=== PATIENT | female | born 1990 | race African-American/Black ===

== ENCOUNTER 2017-04-14 08:36 | Inpatient (IN) | payer OTHER ==
[2017-04-14 09:43] VITALS: BMI 35.0
--- NOTE | 2017-04-14 11:54 | HP ---
Admission [facility] Chief Complaint: REHAB TX FOR ALCOHOL DEPENDENCE Allergies/Adverse Reactions: Allergies Allergy/AdvReac Type Severity Reaction Status Date / Time iron Allergy Verified 04/14/17 10:40 History of Present Illness: 27 Y/O AA/FEMALE WITH A HX ALCOHOL DEPENDENCE SEEKING REHAB TX. PT STATES A PREVIOUS PROBATION MANDATED OPD TX AND WAS IN DETOX AT [facility] LAST WEEK FROM 04/09/17 TO 04/11/17 AND SIGNED OUT AMA. PT IS ALERT O X 3. NAD. Exam Limitations: No Limitations - Ebola screening Have you traveled outside of the country in the last 21 days: No Have you had contact with anyone from an Ebola affected area: No Have you been sick,other than usual withdrawal symptoms: No Do you have a fever: No - Review of Systems Constitutional: Diaphoresis, Night Sweats, Changes in sleep (ON LITH) EENT: reports: Blurred Vision (HX ASTIGMATISM AND WEARS GLASSES), Dental Problems (HX CAVITIES/FILLINGS) Respiratory: reports: No Symptoms reported Cardiac: reports: Chest Pain (ONCE IN A BLUE BALTAZAR. "I WAS CHECKED OUT IN THE PAST AND THEY SAID EKG WAS FINE"), Chest Tightness ("I GET THAT WHEN I CATCH ANXIETY ATTACK") GI: reports: Constipated, Indigestion, Abdominal cramping : reports: Discharge (BROWN DISCHARGE SOMETIMES. DENIES BURNING OR SYMPTOMS AT THIS TIME.) Musculoskeletal: reports: Joint Pain (HX RIGHT DISLOCATED KNEE/TORN LIGAMENT LEFT ANKLE.) Integumentary: reports: Rash (ON RIGHT SOLE AND BIG TOE AREAS) Neuro: reports: Headache, Other (DRY MOUTH FROM DRINKING) Endocrine: reports: No Symptoms Reported Hematology: reports: No Symptoms Reported Psychiatric: reports: Orientated x3, Anxious, Depressed Other Systems: Reviewed and Negative Patient History - Patient Medical History Hx Anemia: No Hx Asthma: No Hx Chronic Obstructive Pulmonary Disease (COPD): No Hx Cardiac Disorders: No Hx Hypertension: No Hx Hypercholesterolemia: No HX Cerebrovascular Accident: No Hx Seizures: No Hx Diabetes: No Hx Gastrointestinal Disorders: No Hx Genitourinary Disorders: Yes (UTI IN THE PAST) Hx Sexually Transmitted Disorders: Yes (Chlamydia 3 years ago) Hx Renal Disease (ESRD): No Hx Thyroid Disease: No Hx Human Immunodeficiency Virus (HIV): No (NEGATIVE HX) Hx Hepatitis C: No Hx Depression: Yes (AND ANXIETY) Hx Suicide Attempt: No Hx Schizophrenia: No - Patient Surgical History Past Surgical History: No Hx Neurologic Surgery: No Hx Cataract Extraction: No Hx Cardiac Surgery: No Hx Lung Surgery: No Hx Breast Surgery: No Hx Breast Biopsy: No Hx Abdominal Surgery: No Hx Appendectomy: No Hx Cholecystectomy: No Hx Genitourinary Surgery: No Hx Orthopedic Surgery: No Anesthesia Reaction: No - PPD History Previous Implant?: Yes (2015) Documented Results: Negative w/o proof Implanted On Prior R Admission?: Yes PPD to be Administered?: Yes - Reproductive History Patient is a Female of Child Bearing Age (11 -55 yrs old): Yes Last Menstrual Period: 03/08/17 Patient : No - Smoking Cessation Smoking history: Current every day smoker Have you smoked in the past 12 months: Yes Aproximately how many cigarettes per day: 8 Hx Chewing Tobacco Use: No Initiated information on smoking cessation: Yes 'Breaking Loose' booklet given: 04/14/17 - Substance & Tx. History Hx Alcohol Use: Yes (VODKA/GIN/TEQUILLA) Hx Substance Use: Yes (MARIJUANA(TOX NEGATIVE)) Substance Use Type: Alcohol, Marijuana (TOX NEGATIVE) Hx Substance Use Treatment: Yes (LAST TX AT [facility]OS[facility] DETOX 04/09 - . SIGNED OUT AMA.) - Substances Abused Alcohol Route: Oral Frequency: Daily Amount used: Mixed Rum, tequila,vodka, Gin - 1 liter, Beer 2 bottles daily Age of first use: 17 Date of Last Use: 04/13/17 Family Disease History - Family Disease History Family Disease History: Other: Father (ANEURYSM-), Mother (BIPOLAR DEPRESSION), Sister (MANIC DEPRESSION) Other Family History: FAMILY HX ALCOHOLISM. Admission Physical Exam [facility] - Vital Signs Vital Signs: Vital Signs - 24 hr 04/14/17 09:36 Temperature 97.2 F L Pulse Rate 92 H Respiratory 18 Rate Blood Pressure 123/71 - Physical General Appearance: Yes: Obese, Irritable, Anxious HEENTM: Yes: EOMI, Normocephalic, DESIRE, Pharynx Normal Respiratory: Yes: Chest Non-Tender, Lungs Clear, Normal Breath Sounds, No Respiratory Distress Neck: Yes: Supple, Trachea in good position Breast: Yes: Breast Exam Deferred Cardiology: Yes: Regular Rhythm, Regular Rate, S1, S2 Abdominal: Yes: Normal Bowel Sounds, Non Tender, Soft, Protuberent Genitourinary: Yes: Other (N/C) Back: Yes: Within Normal Limits Musculoskeletal: Yes: full range of Motion, Gait Steady Extremities: Yes: Non-Tender Neurological: Yes: chief of police II-XII NML intact, Fully Oriented, Alert Integumentary: Yes: Dry, Warm Lymphatic: Yes: Within Normal Limits - Diagnostic (1) Alcohol dependence with uncomplicated withdrawal Current Visit: Yes Status: Chronic (2) Rash Current Visit: Yes Status: Chronic Comment: SOLE OF RIGHT FOOT AND BIG TOE. ECZEMA Cleared for Admission [facility] - Detox or Rehab Claeared for Rehab Admission: Yes [facility] Breath Alcohol Content Breath Alcohol Content: 0 Urine Pregancy Test - Result Urine Test Results: Negative- NO Line Present Urine Drug Screen - Results Drug Screen Negative: No Urine Drug Screen Results: BZO-Benzodiazepines Inpatient Rehab Admission - Initial Determination Are CD services needed?: Yes Free of communicable disease: Yes Not in need of hospitalization: Yes - Rehab Admission Criteria Previous failed treatment: Yes Poor recovery environment: Yes Comorbidities: No Lacks judgement: Yes Patient is meeting Inpatient Rehab admission criteria:: Yes (EXCESSIVE DRINKING AFFECTING HER SOCIAL/PRODUCTIVE LIFE)
[2017-04-14] MEDS ORDERED: P-EPHED 60MG/TRIPROLIDI 2.5MG TABLET PO PRN (12:30)
[2017-04-14] MEDS ORDERED: MAG HYDROX/AL HYDROX/SIMETH 30 ML UNIT-DOSE CUP PO PRN (12:30)
[2017-04-14] MEDS ORDERED: NICOTINE POLACRILEX 2 MG GUM BC PRN (12:30)
[2017-04-14] MEDS ORDERED: ACETAMINOPHEN 325 MG TABLET (FP) PO PRN (12:30)
[2017-04-14] MEDS ORDERED: guaiFENesin/D-METHORPHAN HB 10 ML UNIT-DOSE CUPS PO PRN (12:30)
[2017-04-14] MEDS ORDERED: MAGNESIUM HYDROX 2400MG/30ML ORAL SUSPENSION 30 ML CUP PO PRN (12:30)
[2017-04-14] MEDS ORDERED: MAGNESIUM CITRATE 300 ML BOTTLE PO PRN (12:30)
[2017-04-14] MEDS ORDERED: LOPERAMIDE HCL 2 MG CAPSULE PO PRN (12:30)
[2017-04-14] MEDS ORDERED: MENTHOL/PHENOL 1 EACH UD MM PRN (12:30)
[2017-04-14 15:23] LABS: MCH 27.7 pg (25.7-33.7); MCHC 33.9 g/dl (32.0-36.0); MEAN CELL VOLUME 81.8 fl (80-96); MEAN PLT VOLUME 7.8 fl (7.5-11.1); PLATELET COUNT 348 K/MM3 (134-434); RDW 14.5 % (11.6-15.6); WHITE BLOOD COUNT 11.8 K/mm3 (4.0-10.0)
[2017-04-14] MEDS ORDERED: TUBERCULIN PPD 5 TU/0.1ML VIAL ID ONE (15:35)
[2017-04-14 15:54] LABS: ALBUMIN 3.4 g/dl (3.4-5.0); ALK PHOS 102 U/L (45-117); ANION GAP 8 (8-16); BILIRUBIN,TOTAL 0.5 mg/dL (0.2-1.0); CALCIUM 8.5 mg/dL (8.5-10.1); CO2 25 mmol/L (21-32); CREATININE 0.8 mg/dL (0.55-1.02); GLUCOSE,RANDOM 97 mg/dL (74-106); SGOT/AST 28 U/L (15-37); SGPT/ALT 30 U/L (12-78)
[2017-04-14] MEDS: ASCORBIC ACID 500 MG TABLET (FP) PO SCH (16:00)
[2017-04-14] MEDS: TRIAMCINOLONE ACET 0.025% OINTMENT 15 GM TUBE TP SCH ×2 (16:01→21:31)
[2017-04-14] MEDS: PYRIDOXINE HCL (B-6) 50 MG TABLET (FP) PO SCH (16:02)
[2017-04-14] MEDS: MULTIVITAMINS (DAILY MVI) TABLET (FP) PO SCH (16:02)
[2017-04-14] MEDS: NICOTINE 14 MG/24 HOURS TOPICAL PATCH TD SCH (16:02)
[2017-04-14 16:07] LABS: SICKLE CELL SCREEN POSITIVE (NEGATIVE)
[2017-04-14 19:47] LABS: URINE APPEARANCE SLCLOUDY; URINE BILIRUBIN NEGATIVE (NEGATIVE); URINE BLOOD NEGATIVE (NEGATIVE); URINE COLOR YELLOW; URINE GLUCOSE (UA) NEGATIVE (NEGATIVE); URINE KETONE NEGATIVE (NEGATIVE); URINE NITRITE POSITIVE (NEGATIVE); URINE PROTEIN NEGATIVE (NEGATIVE); URINE UROBILINOGEN NEGATIVE mg/dL (0.2-1.0)
[2017-04-14 19:50] LABS: URINE LEUK ESTERASE 1+ (NEGATIVE)
[2017-04-14 19:58] LABS: URINE BACTERIA MANY /hpf (NONE SEEN); URINE WBC 20 /hpf (3-5)
[2017-04-14] MEDS: TOLNAFTATE 1% CREAM 15 GM TUBE TP SCH (21:31)
[2017-04-14] MEDS: THIAMINE HCL 100 MG TABLET (FP) PO SCH (21:31)
[2017-04-14] MEDS: diphenhydrAMINE HCL 50 MG CAPSULE PO PRN (23:28)
[2017-04-15] MEDS ORDERED: PT OWN MED DRAWER 7, Y5N ONE (08:49)
[2017-04-15] MEDS: TRIAMCINOLONE ACET 0.025% OINTMENT 15 GM TUBE TP SCH ×2 (10:19→21:21)
[2017-04-15] MEDS: NICOTINE 14 MG/24 HOURS TOPICAL PATCH TD SCH (10:19)
[2017-04-15] MEDS: MULTIVITAMINS (DAILY MVI) TABLET (FP) PO SCH (10:21)
[2017-04-15] MEDS: TOLNAFTATE 1% CREAM 15 GM TUBE TP SCH ×2 (10:21→21:20)
[2017-04-15] MEDS: PYRIDOXINE HCL (B-6) 50 MG TABLET (FP) PO SCH (10:22)
[2017-04-15] MEDS: ASCORBIC ACID 500 MG TABLET (FP) PO SCH (10:23)
--- NOTE | 2017-04-15 11:10 | HP ---
Psychiatrist Admission - Data Date of interview: 04/15/17 Admission source: [facility] Identifying data: This is the first admission to [facility] inpatient rehabilitation for this 27 years old AA single ,childless female, unemployed( lost her job recently). Medical History: H/O UTI,H/O STD(Chlamidya 3 years ago). Psychiatric History: Patient reports some sleeping difficulties on and off, reports taking Trazodone in the past with good results.She also has been placed on Zoloft by her PCP ,but stopped due to ineffectiveness.Patient is not willing to take psychotropic medications except small dose of Trazodone for insomnia. Physical/Sexual Abuse/Trauma History: denies history of abuse. Vital Signs: Vital Signs - 24 hr 04/14/17 04/15/17 04/15/17 14:07 00:30 07:38 Temperature 98.3 F 98.0 F Pulse Rate 110 H 86 Respiratory 18 16 18 Rate Blood Pressure 125/83 120/77 Allergies/Adverse Reactions: Allergies Allergy/AdvReac Type Severity Reaction Status Date / Time iron Allergy Verified 04/14/17 10:40 Date of last physical exam: 04/14/17 Concur with the findings of this exam: Yes - Substance Abuse/Tx History Hx Alcohol Use: Yes ( drinking since 17 yo,1 liter of hard liquor,2 bootles of beer daily ) Hx Substance Use: No Substance Use Type: Alcohol Hx Substance Use Treatment: Yes (this is her first inpatient rehabilitation treatment) Mental Status Exam - Mental Status Exam Alert and Oriented to: Time, Place, Person Cognitive Function: Grossly Intact Patient Appearance: Well Groomed Mood: Euthymic Affect: Mood Congruent Patient Behavior: Cooperative Speech Pattern: Clear Voice Loudness: Normal Thought Process: Goal Oriented Thought Disorder: Not Present Hallucinations: Denies Suicidal Ideation: Denies Homicidal Ideation: Denies Insight/Judgement: Fair Sleep: Difficulty falling asleep Appetite: Good Muscle strength/Tone: Normal Gait/Station: Normal Psychiatric Findings - Problem List ([place] 1, 2,3) (1) Alcohol dependence Current Visit: Yes Status: Chronic (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
[2017-04-15] MEDS ORDERED: FLU VACCINE QUAD 60 MCG/0.5 ML (MDV 17-18) IM ONE (12:00)
[2017-04-15] MEDS ORDERED: SULFAMETHOXAZOLE/TRIMETHOPRIM 800MG/160MG D.S. TABLET PO ONE (14:48)
--- NOTE | 2017-04-15 14:58 | PN ---
S Progress Note Note: Urine Test Results Urine Color Yellow 04/14/17 14:00 Urine Appearance Slcloudy 04/14/17 14:00 Urine pH 6.0 (5.0-8.0) 04/14/17 14:00 Ur Specific [place] 1.015 (1.005-1.025) 04/14/17 14:00 Urine Protein Negative (NEGATIVE) 04/14/17 14:00 Urine Glucose (UA) Negative (NEGATIVE) 04/14/17 14:00 Urine Ketones Negative (NEGATIVE) 04/14/17 14:00 Urine Blood Negative (NEGATIVE) 04/14/17 14:00 Urine Nitrite Positive (NEGATIVE) 04/14/17 14:00 Urine Bilirubin Negative (NEGATIVE) 04/14/17 14:00 Urine RBC None /hpf (0-3) 04/14/17 14:00 Urine WBC 20 /hpf (3-5) 04/14/17 14:00 Ur Epithelial Cells Rare /hpf (FEW) 04/14/17 14:00 Urine Bacteria Many /hpf (NONE SEEN) 04/14/17 14:00 U/A is consistent with UTI P : start bactrim ds bid
[2017-04-15] MEDS: SULFAMETHOXAZOLE/TRIMETHOPRIM 800MG/160MG D.S. TABLET PO SCH (21:19)
[2017-04-15] MEDS: traZODone HCL 50 MG TABLET (FP) PO SCH (21:19)
[2017-04-15] MEDS: THIAMINE HCL 100 MG TABLET (FP) PO SCH (21:21)
[2017-04-15] MEDS: diphenhydrAMINE HCL 50 MG CAPSULE PO PRN (22:08)
[2017-04-16] MEDS ORDERED: PT OWN MED DRAWER 7, Y5N ONE (08:56)
[2017-04-16] MEDS: TRIAMCINOLONE ACET 0.025% OINTMENT 15 GM TUBE TP SCH ×2 (10:11→21:17)
[2017-04-16] MEDS: ASCORBIC ACID 500 MG TABLET (FP) PO SCH (10:12)
[2017-04-16] MEDS: TOLNAFTATE 1% CREAM 15 GM TUBE TP SCH ×2 (10:12→21:17)
[2017-04-16] MEDS: MULTIVITAMINS (DAILY MVI) TABLET (FP) PO SCH (10:12)
[2017-04-16] MEDS: PYRIDOXINE HCL (B-6) 50 MG TABLET (FP) PO SCH (10:12)
[2017-04-16] MEDS: SULFAMETHOXAZOLE/TRIMETHOPRIM 800MG/160MG D.S. TABLET PO SCH ×2 (10:12→21:17)
[2017-04-16] MEDS: NICOTINE 14 MG/24 HOURS TOPICAL PATCH TD SCH (10:12)
[2017-04-16] MEDS: diphenhydrAMINE HCL 50 MG CAPSULE PO PRN (21:17)
[2017-04-16] MEDS: traZODone HCL 50 MG TABLET (FP) PO SCH (21:17)
[2017-04-16] MEDS: THIAMINE HCL 100 MG TABLET (FP) PO SCH (21:17)
[2017-04-17 00:07] LABS: Hgb A2 4.1 % (0.7-3.1)
[2017-04-17] MEDS ORDERED: PT OWN MED DRAWER 7, Y5N ONE ×3 (08:22→19:14)
[2017-04-17] MEDS: MULTIVITAMINS (DAILY MVI) TABLET (FP) PO SCH (10:16)
[2017-04-17] MEDS: PYRIDOXINE HCL (B-6) 50 MG TABLET (FP) PO SCH (10:16)
[2017-04-17] MEDS: TOLNAFTATE 1% CREAM 15 GM TUBE TP SCH ×2 (10:17→21:06)
[2017-04-17] MEDS: NICOTINE 14 MG/24 HOURS TOPICAL PATCH TD SCH (10:17)
[2017-04-17] MEDS: ASCORBIC ACID 500 MG TABLET (FP) PO SCH (10:17)
[2017-04-17] MEDS: TRIAMCINOLONE ACET 0.025% OINTMENT 15 GM TUBE TP SCH ×2 (10:18→21:06)
[2017-04-17] MEDS: SULFAMETHOXAZOLE/TRIMETHOPRIM 800MG/160MG D.S. TABLET PO SCH ×2 (10:18→21:06)
--- NOTE | 2017-04-17 18:09 | PN ---
S Progress Note Note: RECEIVED NURSE CALL PATIENT HAS MUSCLE CRAMP FLEXILE 5 MG PO X 1 CONTINUE REHAB
[2017-04-17] MEDS ORDERED: CYCLOBENZAPRINE HCL 5 MG TABLET PO ONE (18:15)
[2017-04-17] MEDS: THIAMINE HCL 100 MG TABLET (FP) PO SCH (21:06)
[2017-04-17] MEDS: traZODone HCL 100 MG TABLET (FP) PO SCH (21:06)
[2017-04-17] MEDS: diphenhydrAMINE HCL 50 MG CAPSULE PO PRN (21:07)
[2017-04-17] MEDS: IBUPROFEN 400 MG TABLET (FP) PO PRN (21:08)
[2017-04-18] MEDS ORDERED: PT OWN MED DRAWER 7, Y5N ONE ×2 (08:38→19:01)
[2017-04-18] MEDS: SULFAMETHOXAZOLE/TRIMETHOPRIM 800MG/160MG D.S. TABLET PO SCH ×2 (09:54→21:10)
[2017-04-18] MEDS: ASCORBIC ACID 500 MG TABLET (FP) PO SCH (09:54)
[2017-04-18] MEDS: MULTIVITAMINS (DAILY MVI) TABLET (FP) PO SCH (09:54)
[2017-04-18] MEDS: PYRIDOXINE HCL (B-6) 50 MG TABLET (FP) PO SCH (09:54)
[2017-04-18] MEDS: TOLNAFTATE 1% CREAM 15 GM TUBE TP SCH ×2 (09:55→21:10)
[2017-04-18] MEDS: TRIAMCINOLONE ACET 0.025% OINTMENT 15 GM TUBE TP SCH ×2 (09:55→21:12)
[2017-04-18] MEDS: NICOTINE 14 MG/24 HOURS TOPICAL PATCH TD SCH (09:55)
[2017-04-18] MEDS: traZODone HCL 100 MG TABLET (FP) PO SCH (21:10)
[2017-04-18] MEDS: THIAMINE HCL 100 MG TABLET (FP) PO SCH (21:10)
[2017-04-18] MEDS: diphenhydrAMINE HCL 50 MG CAPSULE PO PRN (21:11)
[2017-04-19] MEDS: ASCORBIC ACID 500 MG TABLET (FP) PO SCH (09:55)
[2017-04-19] MEDS: NICOTINE 14 MG/24 HOURS TOPICAL PATCH TD SCH (09:56)
[2017-04-19] MEDS: TRIAMCINOLONE ACET 0.025% OINTMENT 15 GM TUBE TP SCH ×2 (09:56→21:11)
[2017-04-19] MEDS: MULTIVITAMINS (DAILY MVI) TABLET (FP) PO SCH (09:57)
[2017-04-19] MEDS: TOLNAFTATE 1% CREAM 15 GM TUBE TP SCH ×2 (09:57→21:11)
[2017-04-19] MEDS: PYRIDOXINE HCL (B-6) 50 MG TABLET (FP) PO SCH (09:57)
[2017-04-19] MEDS: SULFAMETHOXAZOLE/TRIMETHOPRIM 800MG/160MG D.S. TABLET PO SCH ×2 (09:58→21:11)
[2017-04-19] MEDS: traZODone HCL 100 MG TABLET (FP) PO SCH (21:11)
[2017-04-19] MEDS: THIAMINE HCL 100 MG TABLET (FP) PO SCH (21:11)
[2017-04-20] MEDS: SULFAMETHOXAZOLE/TRIMETHOPRIM 800MG/160MG D.S. TABLET PO SCH ×2 (10:14→21:27)
[2017-04-20] MEDS: TOLNAFTATE 1% CREAM 15 GM TUBE TP SCH ×2 (10:15→22:19)
[2017-04-20] MEDS: MULTIVITAMINS (DAILY MVI) TABLET (FP) PO SCH (10:15)
[2017-04-20] MEDS: NICOTINE 14 MG/24 HOURS TOPICAL PATCH TD SCH (10:15)
[2017-04-20] MEDS: ASCORBIC ACID 500 MG TABLET (FP) PO SCH (10:15)
[2017-04-20] MEDS: PYRIDOXINE HCL (B-6) 50 MG TABLET (FP) PO SCH (10:15)
[2017-04-20] MEDS: TRIAMCINOLONE ACET 0.025% OINTMENT 15 GM TUBE TP SCH ×2 (10:15→22:19)
[2017-04-20] MEDS: hydrOXYzine PAMOATE 25 MG CAPSULE (FP) PO PRN ×2 (15:37→21:27)
[2017-04-20] MEDS: THIAMINE HCL 100 MG TABLET (FP) PO SCH (21:27)
[2017-04-20] MEDS: traZODone HCL 100 MG TABLET (FP) PO SCH (21:27)
[2017-04-21] MEDS: TRIAMCINOLONE ACET 0.025% OINTMENT 15 GM TUBE TP SCH ×2 (10:08→21:13)
[2017-04-21] MEDS: SULFAMETHOXAZOLE/TRIMETHOPRIM 800MG/160MG D.S. TABLET PO SCH ×2 (10:08→21:14)
[2017-04-21] MEDS: PYRIDOXINE HCL (B-6) 50 MG TABLET (FP) PO SCH (10:09)
[2017-04-21] MEDS: ASCORBIC ACID 500 MG TABLET (FP) PO SCH (10:09)
[2017-04-21] MEDS: TOLNAFTATE 1% CREAM 15 GM TUBE TP SCH ×2 (10:09→21:13)
[2017-04-21] MEDS: MULTIVITAMINS (DAILY MVI) TABLET (FP) PO SCH (10:09)
[2017-04-21] MEDS: NICOTINE 14 MG/24 HOURS TOPICAL PATCH TD SCH (10:09)
[2017-04-21] MEDS: hydrOXYzine PAMOATE 25 MG CAPSULE (FP) PO PRN ×3 (10:10→21:14)
[2017-04-21] MEDS: traZODone HCL 100 MG TABLET (FP) PO SCH (21:14)
[2017-04-21] MEDS: THIAMINE HCL 100 MG TABLET (FP) PO SCH (21:14)
[2017-04-22] MEDS ORDERED: PT OWN MED DRAWER 7, Y5N ONE (08:48)
[2017-04-22] MEDS: hydrOXYzine PAMOATE 25 MG CAPSULE (FP) PO PRN ×2 (09:32→17:37)
[2017-04-22] MEDS: PYRIDOXINE HCL (B-6) 50 MG TABLET (FP) PO SCH (09:33)
[2017-04-22] MEDS: SULFAMETHOXAZOLE/TRIMETHOPRIM 800MG/160MG D.S. TABLET PO SCH (09:33)
[2017-04-22] MEDS: MULTIVITAMINS (DAILY MVI) TABLET (FP) PO SCH (09:33)
[2017-04-22] MEDS: ASCORBIC ACID 500 MG TABLET (FP) PO SCH (09:33)
[2017-04-22] MEDS: TOLNAFTATE 1% CREAM 15 GM TUBE TP SCH ×2 (09:34→21:16)
[2017-04-22] MEDS: NICOTINE 14 MG/24 HOURS TOPICAL PATCH TD SCH (09:34)
[2017-04-22] MEDS: TRIAMCINOLONE ACET 0.025% OINTMENT 15 GM TUBE TP SCH ×2 (09:35→21:17)
[2017-04-22] MEDS ORDERED: COLLOIDAL OATMEAL 1 BAR EACH TP PRN (15:52)
[2017-04-22] MEDS: traZODone HCL 100 MG TABLET (FP) PO SCH (21:15)
[2017-04-22] MEDS: THIAMINE HCL 100 MG TABLET (FP) PO SCH (21:15)
[2017-04-23] MEDS: IBUPROFEN 400 MG TABLET (FP) PO PRN ×2 (00:01→06:49)
[2017-04-23] MEDS: hydrOXYzine PAMOATE 25 MG CAPSULE (FP) PO PRN ×3 (06:48→21:13)
[2017-04-23] MEDS: MULTIVITAMINS (DAILY MVI) TABLET (FP) PO SCH (09:52)
[2017-04-23] MEDS: ASCORBIC ACID 500 MG TABLET (FP) PO SCH (09:53)
[2017-04-23] MEDS: PYRIDOXINE HCL (B-6) 50 MG TABLET (FP) PO SCH (09:53)
[2017-04-23] MEDS: NICOTINE 14 MG/24 HOURS TOPICAL PATCH TD SCH (09:54)
[2017-04-23] MEDS: TRIAMCINOLONE ACET 0.025% OINTMENT 15 GM TUBE TP SCH ×2 (09:54→21:12)
[2017-04-23] MEDS: TOLNAFTATE 1% CREAM 15 GM TUBE TP SCH ×2 (09:54→21:12)
[2017-04-23 16:19] LABS: URINE APPEARANCE CLOUDY; URINE BILIRUBIN NEGATIVE (NEGATIVE); URINE BLOOD 3+ (NEGATIVE); URINE COLOR YELLOW; URINE GLUCOSE (UA) NEGATIVE (NEGATIVE); URINE KETONE NEGATIVE (NEGATIVE); URINE LEUK ESTERASE TRACE (NEGATIVE); URINE NITRITE NEGATIVE (NEGATIVE); URINE UROBILINOGEN NEGATIVE mg/dL (0.2-1.0)
[2017-04-23 16:28] LABS: URINE PROTEIN 1+ (NEGATIVE)
[2017-04-23] MEDS ORDERED: PT OWN MED DRAWER 7, Y5N ONE (20:59)
[2017-04-23] MEDS: THIAMINE HCL 100 MG TABLET (FP) PO SCH (21:11)
[2017-04-23] MEDS: traZODone HCL 100 MG TABLET (FP) PO SCH (21:11)
[2017-04-24] MEDS ORDERED: PT OWN MED DRAWER 7, Y5N ONE (08:18)
[2017-04-24] MEDS: MULTIVITAMINS (DAILY MVI) TABLET (FP) PO SCH (10:14)
[2017-04-24] MEDS: ASCORBIC ACID 500 MG TABLET (FP) PO SCH (10:14)
[2017-04-24] MEDS: PYRIDOXINE HCL (B-6) 50 MG TABLET (FP) PO SCH (10:14)
[2017-04-24] MEDS: NICOTINE 14 MG/24 HOURS TOPICAL PATCH TD SCH (10:16)
[2017-04-24] MEDS: TRIAMCINOLONE ACET 0.025% OINTMENT 15 GM TUBE TP SCH ×2 (10:16→21:20)
[2017-04-24] MEDS: hydrOXYzine PAMOATE 25 MG CAPSULE (FP) PO PRN (10:16)
[2017-04-24] MEDS: TOLNAFTATE 1% CREAM 15 GM TUBE TP SCH ×2 (10:16→21:19)
[2017-04-24] MEDS: ESCITALOPRAM OXALATE 10 MG TABLET (FP) PO SCH (12:44)
[2017-04-24] MEDS: ACAMPROSATE CALCIUM 333 MG TABLET.DR PO SCH ×2 (13:26→21:18)
[2017-04-24] MEDS: traZODone HCL 100 MG TABLET (FP) PO SCH (21:18)
[2017-04-24] MEDS: THIAMINE HCL 100 MG TABLET (FP) PO SCH (21:18)
[2017-04-24] MEDS: hydrOXYzine PAMOATE 50 MG CAPSULE (FP) PO PRN (21:20)
[2017-04-25] MEDS: ACAMPROSATE CALCIUM 333 MG TABLET.DR PO SCH ×3 (06:50→21:15)
[2017-04-25] MEDS ORDERED: PT OWN MED DRAWER 7, Y5N ONE (08:06)
[2017-04-25] MEDS: ASCORBIC ACID 500 MG TABLET (FP) PO SCH (09:17)
[2017-04-25] MEDS: MULTIVITAMINS (DAILY MVI) TABLET (FP) PO SCH (09:18)
[2017-04-25] MEDS: ESCITALOPRAM OXALATE 10 MG TABLET (FP) PO SCH (09:18)
[2017-04-25] MEDS: TRIAMCINOLONE ACET 0.025% OINTMENT 15 GM TUBE TP SCH ×2 (09:19→21:16)
[2017-04-25] MEDS: PYRIDOXINE HCL (B-6) 50 MG TABLET (FP) PO SCH (09:19)
[2017-04-25] MEDS: NICOTINE 14 MG/24 HOURS TOPICAL PATCH TD SCH (09:19)
[2017-04-25] MEDS: TOLNAFTATE 1% CREAM 15 GM TUBE TP SCH ×2 (09:19→21:16)
[2017-04-25] MEDS: hydrOXYzine PAMOATE 50 MG CAPSULE (FP) PO PRN ×3 (09:20→21:16)
[2017-04-25] MEDS: traZODone HCL 100 MG TABLET (FP) PO SCH (21:15)
[2017-04-25] MEDS: THIAMINE HCL 100 MG TABLET (FP) PO SCH (21:15)
[2017-04-26] MEDS: ACAMPROSATE CALCIUM 333 MG TABLET.DR PO SCH ×3 (06:39→21:08)
[2017-04-26] MEDS ORDERED: PT OWN MED DRAWER 7, Y5N ONE (08:03)
[2017-04-26] MEDS: ESCITALOPRAM OXALATE 10 MG TABLET (FP) PO SCH (09:52)
[2017-04-26] MEDS: TRIAMCINOLONE ACET 0.025% OINTMENT 15 GM TUBE TP SCH ×2 (09:52→21:08)
[2017-04-26] MEDS: MULTIVITAMINS (DAILY MVI) TABLET (FP) PO SCH (09:53)
[2017-04-26] MEDS: ASCORBIC ACID 500 MG TABLET (FP) PO SCH (09:53)
[2017-04-26] MEDS: PYRIDOXINE HCL (B-6) 50 MG TABLET (FP) PO SCH (09:54)
[2017-04-26] MEDS: hydrOXYzine PAMOATE 50 MG CAPSULE (FP) PO PRN ×3 (09:54→21:10)
[2017-04-26] MEDS: TOLNAFTATE 1% CREAM 15 GM TUBE TP SCH ×2 (09:54→21:09)
[2017-04-26] MEDS: NICOTINE 14 MG/24 HOURS TOPICAL PATCH TD SCH (09:54)
[2017-04-26] MEDS: THIAMINE HCL 100 MG TABLET (FP) PO SCH (21:09)
[2017-04-26] MEDS: traZODone HCL 100 MG TABLET (FP) PO SCH (21:09)
[2017-04-27] MEDS: ACAMPROSATE CALCIUM 333 MG TABLET.DR PO SCH ×3 (06:37→21:15)
[2017-04-27] MEDS: hydrOXYzine PAMOATE 50 MG CAPSULE (FP) PO PRN ×3 (08:50→21:15)
[2017-04-27] MEDS: ESCITALOPRAM OXALATE 10 MG TABLET (FP) PO SCH (10:15)
[2017-04-27] MEDS: PYRIDOXINE HCL (B-6) 50 MG TABLET (FP) PO SCH (10:16)
[2017-04-27] MEDS: MULTIVITAMINS (DAILY MVI) TABLET (FP) PO SCH (10:16)
[2017-04-27] MEDS: TOLNAFTATE 1% CREAM 15 GM TUBE TP SCH ×2 (10:16→21:16)
[2017-04-27] MEDS: TRIAMCINOLONE ACET 0.025% OINTMENT 15 GM TUBE TP SCH ×2 (10:16→21:16)
[2017-04-27] MEDS: ASCORBIC ACID 500 MG TABLET (FP) PO SCH (10:16)
[2017-04-27] MEDS: NICOTINE 14 MG/24 HOURS TOPICAL PATCH TD SCH (10:16)
[2017-04-27] MEDS: traZODone HCL 100 MG TABLET (FP) PO SCH (21:15)
[2017-04-27] MEDS: THIAMINE HCL 100 MG TABLET (FP) PO SCH (21:15)
[2017-04-28] MEDS: ACAMPROSATE CALCIUM 333 MG TABLET.DR PO SCH ×3 (06:33→21:10)
[2017-04-28] MEDS: PYRIDOXINE HCL (B-6) 50 MG TABLET (FP) PO SCH (10:23)
[2017-04-28] MEDS: ASCORBIC ACID 500 MG TABLET (FP) PO SCH (10:23)
[2017-04-28] MEDS: TRIAMCINOLONE ACET 0.025% OINTMENT 15 GM TUBE TP SCH ×2 (10:23→21:11)
[2017-04-28] MEDS: TOLNAFTATE 1% CREAM 15 GM TUBE TP SCH ×2 (10:23→21:12)
[2017-04-28] MEDS: NICOTINE 14 MG/24 HOURS TOPICAL PATCH TD SCH (10:23)
[2017-04-28] MEDS: MULTIVITAMINS (DAILY MVI) TABLET (FP) PO SCH (10:23)
[2017-04-28] MEDS: ESCITALOPRAM OXALATE 10 MG TABLET (FP) PO SCH (10:30)
[2017-04-28] MEDS: hydrOXYzine PAMOATE 50 MG CAPSULE (FP) PO PRN ×2 (10:32→18:07)
[2017-04-28] MEDS: PANTOPRAZOLE 40 MG TABLET (FP) PO SCH (12:02)
[2017-04-28] MEDS: NAPROXEN 500 MG TABLET (FP) PO SCH ×2 (12:02→21:10)
--- NOTE | 2017-04-28 12:06 | PN ---
S Progress Note Note: patient almost fell after taking top lift and automatic window repairer, no injuries reported no pain occurrence reprot completed, fall protocol ordered, d/w nurse
[2017-04-28] MEDS: THIAMINE HCL 100 MG TABLET (FP) PO SCH (21:10)
[2017-04-28] MEDS: traZODone HCL 100 MG TABLET (FP) PO SCH (21:10)
[2017-04-29] MEDS: ACAMPROSATE CALCIUM 333 MG TABLET.DR PO SCH ×3 (06:39→21:14)
[2017-04-29] MEDS ORDERED: PT OWN MED DRAWER 7, Y5N ONE ×2 (08:46→23:08)
[2017-04-29] MEDS: TOLNAFTATE 1% CREAM 15 GM TUBE TP SCH ×2 (10:20→21:15)
[2017-04-29] MEDS: ESCITALOPRAM OXALATE 10 MG TABLET (FP) PO SCH (10:21)
[2017-04-29] MEDS: NAPROXEN 500 MG TABLET (FP) PO SCH ×2 (10:21→21:14)
[2017-04-29] MEDS: TRIAMCINOLONE ACET 0.025% OINTMENT 15 GM TUBE TP SCH ×2 (10:21→21:15)
[2017-04-29] MEDS: PANTOPRAZOLE 40 MG TABLET (FP) PO SCH (10:21)
[2017-04-29] MEDS: ASCORBIC ACID 500 MG TABLET (FP) PO SCH (10:22)
[2017-04-29] MEDS: MULTIVITAMINS (DAILY MVI) TABLET (FP) PO SCH (10:22)
[2017-04-29] MEDS: PYRIDOXINE HCL (B-6) 50 MG TABLET (FP) PO SCH (10:23)
[2017-04-29] MEDS: hydrOXYzine PAMOATE 50 MG CAPSULE (FP) PO PRN ×3 (10:24→21:14)
[2017-04-29] MEDS: NICOTINE 14 MG/24 HOURS TOPICAL PATCH TD SCH (10:32)
[2017-04-29] MEDS: traZODone HCL 100 MG TABLET (FP) PO SCH (21:14)
[2017-04-29] MEDS: THIAMINE HCL 100 MG TABLET (FP) PO SCH (21:14)
[2017-04-30] MEDS: ACAMPROSATE CALCIUM 333 MG TABLET.DR PO SCH ×3 (06:25→21:16)
[2017-04-30] MEDS ORDERED: PT OWN MED DRAWER 7, Y5N ONE ×5 (08:33→21:19)
[2017-04-30] MEDS: PYRIDOXINE HCL (B-6) 50 MG TABLET (FP) PO SCH (09:58)
[2017-04-30] MEDS: MULTIVITAMINS (DAILY MVI) TABLET (FP) PO SCH (09:58)
[2017-04-30] MEDS: PANTOPRAZOLE 40 MG TABLET (FP) PO SCH (09:58)
[2017-04-30] MEDS: ASCORBIC ACID 500 MG TABLET (FP) PO SCH (09:59)
[2017-04-30] MEDS: TOLNAFTATE 1% CREAM 15 GM TUBE TP SCH ×2 (09:59→21:21)
[2017-04-30] MEDS: NICOTINE 14 MG/24 HOURS TOPICAL PATCH TD SCH (09:59)
[2017-04-30] MEDS: NAPROXEN 500 MG TABLET (FP) PO SCH ×2 (09:59→21:16)
[2017-04-30] MEDS: ESCITALOPRAM OXALATE 10 MG TABLET (FP) PO SCH (09:59)
[2017-04-30] MEDS: hydrOXYzine PAMOATE 50 MG CAPSULE (FP) PO PRN ×2 (10:01→21:16)
[2017-04-30] MEDS: TRIAMCINOLONE ACET 0.025% OINTMENT 15 GM TUBE TP SCH ×2 (10:49→21:17)
[2017-04-30] MEDS: CLOTRIMAZOLE 1% CREAM 15 GM TUBE TP SCH ×2 (14:00→21:20)
[2017-04-30] MEDS: THIAMINE HCL 100 MG TABLET (FP) PO SCH (21:16)
[2017-04-30] MEDS: traZODone HCL 100 MG TABLET (FP) PO SCH (21:16)
[2017-04-30] MEDS: MICONAZOLE NITRATE 100 MG SUPP SUPP.VAG PV SCH (21:22)
[2017-05-01] MEDS: ACAMPROSATE CALCIUM 333 MG TABLET.DR PO SCH ×3 (06:50→21:22)
[2017-05-01] MEDS ORDERED: PT OWN MED DRAWER 7, Y5N ONE ×4 (08:35→19:28)
[2017-05-01] MEDS: PANTOPRAZOLE 40 MG TABLET (FP) PO SCH (10:14)
[2017-05-01] MEDS: PYRIDOXINE HCL (B-6) 50 MG TABLET (FP) PO SCH (10:14)
[2017-05-01] MEDS: MULTIVITAMINS (DAILY MVI) TABLET (FP) PO SCH (10:14)
[2017-05-01] MEDS: NAPROXEN 500 MG TABLET (FP) PO SCH ×2 (10:14→21:22)
[2017-05-01] MEDS: ASCORBIC ACID 500 MG TABLET (FP) PO SCH (10:15)
[2017-05-01] MEDS: ESCITALOPRAM OXALATE 10 MG TABLET (FP) PO SCH (10:15)
[2017-05-01] MEDS: hydrOXYzine PAMOATE 50 MG CAPSULE (FP) PO PRN (10:17)
[2017-05-01] MEDS: NICOTINE 14 MG/24 HOURS TOPICAL PATCH TD SCH (10:18)
[2017-05-01] MEDS: TOLNAFTATE 1% CREAM 15 GM TUBE TP SCH ×2 (10:18→22:12)
[2017-05-01] MEDS: TRIAMCINOLONE ACET 0.025% OINTMENT 15 GM TUBE TP SCH ×2 (10:18→21:23)
[2017-05-01] MEDS: CLOTRIMAZOLE 1% CREAM 15 GM TUBE TP SCH ×2 (10:18→21:23)
[2017-05-01] MEDS: traZODone HCL 50 MG TABLET (FP) PO SCH (21:21)
[2017-05-01] MEDS: THIAMINE HCL 100 MG TABLET (FP) PO SCH (21:22)
[2017-05-01] MEDS: MICONAZOLE NITRATE 100 MG SUPP SUPP.VAG PV SCH (22:12)
[2017-05-02] MEDS: ACAMPROSATE CALCIUM 333 MG TABLET.DR PO SCH ×3 (06:47→21:17)
[2017-05-02] MEDS ORDERED: PT OWN MED DRAWER 7, Y5N ONE (08:42)
[2017-05-02] MEDS: PANTOPRAZOLE 40 MG TABLET (FP) PO SCH (09:58)
[2017-05-02] MEDS: MULTIVITAMINS (DAILY MVI) TABLET (FP) PO SCH (09:58)
[2017-05-02] MEDS: ASCORBIC ACID 500 MG TABLET (FP) PO SCH (09:58)
[2017-05-02] MEDS: PYRIDOXINE HCL (B-6) 50 MG TABLET (FP) PO SCH (09:58)
[2017-05-02] MEDS: TRIAMCINOLONE ACET 0.025% OINTMENT 15 GM TUBE TP SCH ×2 (09:59→21:18)
[2017-05-02] MEDS: CLOTRIMAZOLE 1% CREAM 15 GM TUBE TP SCH ×2 (09:59→21:18)
[2017-05-02] MEDS: ESCITALOPRAM OXALATE 10 MG TABLET (FP) PO SCH (09:59)
[2017-05-02] MEDS: NAPROXEN 500 MG TABLET (FP) PO SCH ×2 (09:59→21:17)
[2017-05-02] MEDS: TOLNAFTATE 1% CREAM 15 GM TUBE TP SCH ×2 (10:00→21:19)
[2017-05-02] MEDS: hydrOXYzine PAMOATE 50 MG CAPSULE (FP) PO PRN ×2 (10:01→17:44)
[2017-05-02] MEDS: NICOTINE 14 MG/24 HOURS TOPICAL PATCH TD SCH (10:02)
[2017-05-02] MEDS: THIAMINE HCL 100 MG TABLET (FP) PO SCH (21:16)
[2017-05-02] MEDS: traZODone HCL 50 MG TABLET (FP) PO SCH (21:17)
[2017-05-02] MEDS: MICONAZOLE NITRATE 100 MG SUPP SUPP.VAG PV SCH (21:18)
[2017-05-03] MEDS: ACAMPROSATE CALCIUM 333 MG TABLET.DR PO SCH ×3 (06:36→21:13)
[2017-05-03] MEDS ORDERED: PT OWN MED DRAWER 7, Y5N ONE (08:31)
[2017-05-03] MEDS: PYRIDOXINE HCL (B-6) 50 MG TABLET (FP) PO SCH (09:40)
[2017-05-03] MEDS: ESCITALOPRAM OXALATE 10 MG TABLET (FP) PO SCH (09:41)
[2017-05-03] MEDS: PANTOPRAZOLE 40 MG TABLET (FP) PO SCH (09:41)
[2017-05-03] MEDS: ASCORBIC ACID 500 MG TABLET (FP) PO SCH (09:41)
[2017-05-03] MEDS: NAPROXEN 500 MG TABLET (FP) PO SCH ×2 (09:41→21:12)
[2017-05-03] MEDS: MULTIVITAMINS (DAILY MVI) TABLET (FP) PO SCH (09:41)
[2017-05-03] MEDS: hydrOXYzine PAMOATE 50 MG CAPSULE (FP) PO PRN (09:41)
[2017-05-03] MEDS: CLOTRIMAZOLE 1% CREAM 15 GM TUBE TP SCH ×2 (09:42→21:13)
[2017-05-03] MEDS: TOLNAFTATE 1% CREAM 15 GM TUBE TP SCH ×2 (09:42→21:14)
[2017-05-03] MEDS: TRIAMCINOLONE ACET 0.025% OINTMENT 15 GM TUBE TP SCH ×2 (09:42→21:12)
[2017-05-03] MEDS: NICOTINE 14 MG/24 HOURS TOPICAL PATCH TD SCH (09:42)
[2017-05-03] MEDS: THIAMINE HCL 100 MG TABLET (FP) PO SCH (21:12)
[2017-05-03] MEDS: traZODone HCL 50 MG TABLET (FP) PO SCH (21:12)
[2017-05-03] MEDS: MICONAZOLE NITRATE 100 MG SUPP SUPP.VAG PV SCH (21:14)
[2017-05-04] MEDS: ACAMPROSATE CALCIUM 333 MG TABLET.DR PO SCH ×3 (06:35→21:12)
[2017-05-04] MEDS ORDERED: PT OWN MED DRAWER 7, Y5N ONE (08:08)
[2017-05-04] MEDS: TRIAMCINOLONE ACET 0.025% OINTMENT 15 GM TUBE TP SCH ×2 (09:40→21:13)
[2017-05-04] MEDS: ESCITALOPRAM OXALATE 10 MG TABLET (FP) PO SCH (09:40)
[2017-05-04] MEDS: CLOTRIMAZOLE 1% CREAM 15 GM TUBE TP SCH ×2 (09:41→21:13)
[2017-05-04] MEDS: MULTIVITAMINS (DAILY MVI) TABLET (FP) PO SCH (09:41)
[2017-05-04] MEDS: NAPROXEN 500 MG TABLET (FP) PO SCH ×2 (09:41→21:12)
[2017-05-04] MEDS: PANTOPRAZOLE 40 MG TABLET (FP) PO SCH (09:41)
[2017-05-04] MEDS: PYRIDOXINE HCL (B-6) 50 MG TABLET (FP) PO SCH (09:42)
[2017-05-04] MEDS: TOLNAFTATE 1% CREAM 15 GM TUBE TP SCH ×2 (09:42→21:14)
[2017-05-04] MEDS: ASCORBIC ACID 500 MG TABLET (FP) PO SCH (09:42)
[2017-05-04] MEDS: hydrOXYzine PAMOATE 50 MG CAPSULE (FP) PO PRN (09:43)
[2017-05-04] MEDS: NICOTINE 14 MG/24 HOURS TOPICAL PATCH TD SCH (10:17)
[2017-05-04] MEDS: diphenhydrAMINE HCL 50 MG CAPSULE PO PRN (21:12)
[2017-05-04] MEDS: traZODone HCL 50 MG TABLET (FP) PO SCH (21:12)
[2017-05-04] MEDS: MICONAZOLE NITRATE 100 MG SUPP SUPP.VAG PV SCH (21:13)
[2017-05-04] MEDS: THIAMINE HCL 100 MG TABLET (FP) PO SCH (21:14)
[2017-05-05] MEDS: ACAMPROSATE CALCIUM 333 MG TABLET.DR PO SCH ×4 (06:14→21:13)
[2017-05-05] MEDS: CLOTRIMAZOLE 1% CREAM 15 GM TUBE TP SCH ×2 (10:03→21:14)
[2017-05-05] MEDS: TRIAMCINOLONE ACET 0.025% OINTMENT 15 GM TUBE TP SCH ×2 (10:03→21:13)
[2017-05-05] MEDS: MULTIVITAMINS (DAILY MVI) TABLET (FP) PO SCH (10:03)
[2017-05-05] MEDS: ESCITALOPRAM OXALATE 10 MG TABLET (FP) PO SCH (10:03)
[2017-05-05] MEDS: ASCORBIC ACID 500 MG TABLET (FP) PO SCH (10:04)
[2017-05-05] MEDS: PYRIDOXINE HCL (B-6) 50 MG TABLET (FP) PO SCH (10:04)
[2017-05-05] MEDS: NAPROXEN 500 MG TABLET (FP) PO SCH ×2 (10:04→21:13)
[2017-05-05] MEDS: NICOTINE 14 MG/24 HOURS TOPICAL PATCH TD SCH (10:04)
[2017-05-05] MEDS: TOLNAFTATE 1% CREAM 15 GM TUBE TP SCH ×2 (10:05→21:14)
[2017-05-05] MEDS: PANTOPRAZOLE 40 MG TABLET (FP) PO SCH (10:05)
[2017-05-05] MEDS: hydrOXYzine PAMOATE 50 MG CAPSULE (FP) PO PRN ×2 (10:07→16:51)
[2017-05-05] MEDS ORDERED: PT OWN MED DRAWER 7, Y5N ONE (10:54)
[2017-05-05] MEDS: diphenhydrAMINE HCL 50 MG CAPSULE PO PRN (21:13)
[2017-05-05] MEDS: traZODone HCL 50 MG TABLET (FP) PO SCH (21:13)
[2017-05-05] MEDS: MICONAZOLE NITRATE 100 MG SUPP SUPP.VAG PV SCH (21:14)
[2017-05-05] MEDS: THIAMINE HCL 100 MG TABLET (FP) PO SCH (21:14)
[2017-05-06] MEDS: ACAMPROSATE CALCIUM 333 MG TABLET.DR PO SCH ×3 (07:00→21:14)
[2017-05-06] MEDS ORDERED: PT OWN MED DRAWER 7, Y5N ONE (08:35)
[2017-05-06] MEDS: NAPROXEN 500 MG TABLET (FP) PO SCH ×2 (10:48→21:14)
[2017-05-06] MEDS: ASCORBIC ACID 500 MG TABLET (FP) PO SCH (10:48)
[2017-05-06] MEDS: TOLNAFTATE 1% CREAM 15 GM TUBE TP SCH ×2 (10:48→21:30)
[2017-05-06] MEDS: ESCITALOPRAM OXALATE 10 MG TABLET (FP) PO SCH (10:48)
[2017-05-06] MEDS: CLOTRIMAZOLE 1% CREAM 15 GM TUBE TP SCH ×2 (10:48→21:16)
[2017-05-06] MEDS: PANTOPRAZOLE 40 MG TABLET (FP) PO SCH (10:48)
[2017-05-06] MEDS: TRIAMCINOLONE ACET 0.025% OINTMENT 15 GM TUBE TP SCH ×2 (10:48→21:14)
[2017-05-06] MEDS: NICOTINE 14 MG/24 HOURS TOPICAL PATCH TD SCH (10:48)
[2017-05-06] MEDS: PYRIDOXINE HCL (B-6) 50 MG TABLET (FP) PO SCH (10:48)
[2017-05-06] MEDS: MULTIVITAMINS (DAILY MVI) TABLET (FP) PO SCH (10:48)
[2017-05-06] MEDS: traZODone HCL 50 MG TABLET (FP) PO SCH (21:14)
[2017-05-06] MEDS: hydrOXYzine PAMOATE 50 MG CAPSULE (FP) PO PRN (21:14)
[2017-05-06] MEDS: THIAMINE HCL 100 MG TABLET (FP) PO SCH (21:14)
[2017-05-06] MEDS: MICONAZOLE NITRATE 100 MG SUPP SUPP.VAG PV SCH (21:16)
[2017-05-07] MEDS: ACAMPROSATE CALCIUM 333 MG TABLET.DR PO SCH ×3 (06:25→21:13)
[2017-05-07] MEDS: TRIAMCINOLONE ACET 0.025% OINTMENT 15 GM TUBE TP SCH ×2 (09:53→21:14)
[2017-05-07] MEDS: ESCITALOPRAM OXALATE 10 MG TABLET (FP) PO SCH (09:54)
[2017-05-07] MEDS: MULTIVITAMINS (DAILY MVI) TABLET (FP) PO SCH (09:55)
[2017-05-07] MEDS: PANTOPRAZOLE 40 MG TABLET (FP) PO SCH (09:55)
[2017-05-07] MEDS: NAPROXEN 500 MG TABLET (FP) PO SCH ×2 (09:56→21:13)
[2017-05-07] MEDS: ASCORBIC ACID 500 MG TABLET (FP) PO SCH (09:56)
[2017-05-07] MEDS: hydrOXYzine PAMOATE 50 MG CAPSULE (FP) PO PRN ×3 (09:57→21:15)
[2017-05-07] MEDS: TOLNAFTATE 1% CREAM 15 GM TUBE TP SCH ×2 (10:05→21:14)
[2017-05-07] MEDS: PYRIDOXINE HCL (B-6) 50 MG TABLET (FP) PO SCH (10:05)
[2017-05-07] MEDS: CLOTRIMAZOLE 1% CREAM 15 GM TUBE TP SCH ×2 (10:05→21:14)
[2017-05-07] MEDS: NICOTINE 14 MG/24 HOURS TOPICAL PATCH TD SCH (10:05)
[2017-05-07] MEDS: traZODone HCL 50 MG TABLET (FP) PO SCH (21:13)
[2017-05-07] MEDS: THIAMINE HCL 100 MG TABLET (FP) PO SCH (21:13)
[2017-05-07] MEDS: MICONAZOLE NITRATE 100 MG SUPP SUPP.VAG PV SCH (21:14)
[2017-05-07] MEDS ORDERED: PT OWN MED DRAWER 7, Y5N ONE (21:16)
[2017-05-08] MEDS: ACAMPROSATE CALCIUM 333 MG TABLET.DR PO SCH ×3 (06:34→21:12)
[2017-05-08] MEDS: NAPROXEN 500 MG TABLET (FP) PO SCH ×2 (10:07→21:12)
[2017-05-08] MEDS: PANTOPRAZOLE 40 MG TABLET (FP) PO SCH (10:08)
[2017-05-08] MEDS: NICOTINE 14 MG/24 HOURS TOPICAL PATCH TD SCH (10:08)
[2017-05-08] MEDS: ESCITALOPRAM OXALATE 10 MG TABLET (FP) PO SCH (10:08)
[2017-05-08] MEDS: TRIAMCINOLONE ACET 0.025% OINTMENT 15 GM TUBE TP SCH ×2 (10:08→21:16)
[2017-05-08] MEDS: PYRIDOXINE HCL (B-6) 50 MG TABLET (FP) PO SCH (10:09)
[2017-05-08] MEDS: MULTIVITAMINS (DAILY MVI) TABLET (FP) PO SCH (10:09)
[2017-05-08] MEDS: CLOTRIMAZOLE 1% CREAM 15 GM TUBE TP SCH ×2 (10:09→21:16)
[2017-05-08] MEDS: ASCORBIC ACID 500 MG TABLET (FP) PO SCH (10:11)
[2017-05-08] MEDS ORDERED: PT OWN MED DRAWER 7, Y5N ONE ×2 (10:11→21:16)
[2017-05-08] MEDS: TOLNAFTATE 1% CREAM 15 GM TUBE TP SCH ×2 (10:12→21:15)
[2017-05-08] MEDS: hydrOXYzine PAMOATE 50 MG CAPSULE (FP) PO PRN ×2 (10:13→18:28)
[2017-05-08] MEDS: THIAMINE HCL 100 MG TABLET (FP) PO SCH (21:12)
[2017-05-08] MEDS: traZODone HCL 50 MG TABLET (FP) PO SCH (21:12)
[2017-05-08] MEDS: diphenhydrAMINE HCL 50 MG CAPSULE PO PRN (21:17)
[2017-05-08] MEDS: MICONAZOLE NITRATE 100 MG SUPP SUPP.VAG PV SCH (21:17)
[2017-05-09] MEDS: ACAMPROSATE CALCIUM 333 MG TABLET.DR PO SCH ×3 (06:44→21:11)
[2017-05-09] MEDS ORDERED: PT OWN MED DRAWER 7, Y5N ONE (08:08)
[2017-05-09] MEDS: ESCITALOPRAM OXALATE 10 MG TABLET (FP) PO SCH (09:13)
[2017-05-09] MEDS: TRIAMCINOLONE ACET 0.025% OINTMENT 15 GM TUBE TP SCH ×2 (09:13→21:12)
[2017-05-09] MEDS: ASCORBIC ACID 500 MG TABLET (FP) PO SCH (09:13)
[2017-05-09] MEDS: PYRIDOXINE HCL (B-6) 50 MG TABLET (FP) PO SCH (09:13)
[2017-05-09] MEDS: NAPROXEN 500 MG TABLET (FP) PO SCH ×2 (09:14→21:11)
[2017-05-09] MEDS: MULTIVITAMINS (DAILY MVI) TABLET (FP) PO SCH (09:14)
[2017-05-09] MEDS: hydrOXYzine PAMOATE 50 MG CAPSULE (FP) PO PRN ×2 (09:15→18:19)
[2017-05-09] MEDS: TOLNAFTATE 1% CREAM 15 GM TUBE TP SCH ×2 (09:15→21:12)
[2017-05-09] MEDS: CLOTRIMAZOLE 1% CREAM 15 GM TUBE TP SCH ×2 (09:16→21:12)
[2017-05-09] MEDS: PANTOPRAZOLE 40 MG TABLET (FP) PO SCH (09:16)
[2017-05-09] MEDS: NICOTINE 14 MG/24 HOURS TOPICAL PATCH TD SCH (09:16)
[2017-05-09] MEDS: traZODone HCL 50 MG TABLET (FP) PO SCH (21:11)
[2017-05-09] MEDS: THIAMINE HCL 100 MG TABLET (FP) PO SCH (21:11)
[2017-05-09] MEDS: MICONAZOLE NITRATE 100 MG SUPP SUPP.VAG PV SCH (21:12)
[2017-05-10] MEDS: ACAMPROSATE CALCIUM 333 MG TABLET.DR PO SCH ×3 (07:01→21:15)
[2017-05-10] MEDS ORDERED: PT OWN MED DRAWER 7, Y5N ONE ×2 (08:08→18:22)
[2017-05-10] MEDS: ASCORBIC ACID 500 MG TABLET (FP) PO SCH (09:41)
[2017-05-10] MEDS: PANTOPRAZOLE 40 MG TABLET (FP) PO SCH (09:42)
[2017-05-10] MEDS: TOLNAFTATE 1% CREAM 15 GM TUBE TP SCH ×2 (09:42→21:17)
[2017-05-10] MEDS: ESCITALOPRAM OXALATE 10 MG TABLET (FP) PO SCH (09:42)
[2017-05-10] MEDS: MULTIVITAMINS (DAILY MVI) TABLET (FP) PO SCH (09:42)
[2017-05-10] MEDS: NAPROXEN 500 MG TABLET (FP) PO SCH ×2 (09:42→21:16)
[2017-05-10] MEDS: TRIAMCINOLONE ACET 0.025% OINTMENT 15 GM TUBE TP SCH ×2 (09:43→21:17)
[2017-05-10] MEDS: CLOTRIMAZOLE 1% CREAM 15 GM TUBE TP SCH (09:43)
[2017-05-10] MEDS: hydrOXYzine PAMOATE 50 MG CAPSULE (FP) PO PRN ×2 (09:44→21:16)
[2017-05-10] MEDS: PYRIDOXINE HCL (B-6) 50 MG TABLET (FP) PO SCH (09:44)
[2017-05-10] MEDS: NICOTINE 14 MG/24 HOURS TOPICAL PATCH TD SCH (09:45)
[2017-05-10] MEDS: traZODone HCL 50 MG TABLET (FP) PO SCH (21:15)
[2017-05-10] MEDS: THIAMINE HCL 100 MG TABLET (FP) PO SCH (21:16)
[2017-05-10] MEDS: MICONAZOLE NITRATE 100 MG SUPP SUPP.VAG PV SCH (21:17)
[2017-05-11] MEDS: CLOTRIMAZOLE 1% CREAM 15 GM TUBE TP SCH ×3 (00:36→21:34)
[2017-05-11] MEDS: ACAMPROSATE CALCIUM 333 MG TABLET.DR PO SCH ×3 (06:31→21:33)
[2017-05-11] MEDS: PANTOPRAZOLE 40 MG TABLET (FP) PO SCH (10:12)
[2017-05-11] MEDS: ESCITALOPRAM OXALATE 10 MG TABLET (FP) PO SCH (10:12)
[2017-05-11] MEDS: ASCORBIC ACID 500 MG TABLET (FP) PO SCH (10:12)
[2017-05-11] MEDS: NAPROXEN 500 MG TABLET (FP) PO SCH ×2 (10:13→21:32)
[2017-05-11] MEDS: TRIAMCINOLONE ACET 0.025% OINTMENT 15 GM TUBE TP SCH ×2 (10:13→21:32)
[2017-05-11] MEDS: MULTIVITAMINS (DAILY MVI) TABLET (FP) PO SCH (10:13)
[2017-05-11] MEDS: NICOTINE 14 MG/24 HOURS TOPICAL PATCH TD SCH (10:13)
[2017-05-11] MEDS: PYRIDOXINE HCL (B-6) 50 MG TABLET (FP) PO SCH (10:13)
[2017-05-11] MEDS: TOLNAFTATE 1% CREAM 15 GM TUBE TP SCH ×2 (10:13→21:34)
[2017-05-11] MEDS: hydrOXYzine PAMOATE 50 MG CAPSULE (FP) PO PRN ×3 (10:14→21:33)
--- NOTE | 2017-05-11 12:06 | PN ---
Psychiatric Progress Note Vital Signs: Vital Signs Period Temp Pulse Resp BP Sys/Whitten Pulse Ox Last 24 Hr 98.0 F 61 18-18 103/68 Date of Session: 05/11/17 Chief Complaint:: Discharge visit HPI: Case of a 27 y/o AA female admitted to [address] [place] [address] to address alcohol dependence co-morbid with alcohol-induced sleep disorder.Rehabilitation completed. ROS: Patient is cognitively intact.No sommatic complaints.Ambulatory. Current Medications: Active Medications Generic Name Dose Route Start Last Admin Trade Name Freq PRN Reason Stop Dose Admin Acamprosate 666 mg 04/24/17 14:00 05/11/17 06:31 Campral - PO 666 mg TID CELESTINA Administration Acetaminophen 650 mg 04/14/17 12:30 04/22/17 17:37 Tylenol - PO 650 mg Q4H PRN Administration PAIN Al Hydroxide/Mg Hydroxide 30 ml 04/14/17 12:30 Mylanta Oral Suspension - PO Q6H PRN DYSPEPSIA Ascorbic Acid 500 mg 04/14/17 13:45 05/11/17 10:12 Vitamin C - PO 500 mg DAILY CELESTINA Administration Clotrimazole 1 applic 04/30/17 12:00 05/11/17 10:13 Lotrimin 1% Cream - TP Not Given BID CELESTINA Colloidal Oatmeal 1 applic 04/22/17 15:52 04/23/17 06:47 Aveeno Soap - TP 1 applic DAILY PRN Administration HYGEINE Diphenhydramine HCl 50 mg 04/14/17 12:30 05/08/17 21:17 Benadryl - PO 50 mg HSMR1 PRN Administration INSOMNIA Escitalopram Oxalate 10 mg 05/02/17 10:00 05/11/17 10:12 Lexapro - PO 10 mg DAILY CELESTINA Administration Eucalyptus/Menthol/Phenol/Sorbitol 1 each 04/14/17 12:30 Cepastat Lozenge - MM Q4H PRN SORE THROAT Guaifenesin 10 ml 04/14/17 12:30 Robitussin Dm - PO Q6H PRN COUGH Hydroxyzine Pamoate 50 mg 04/24/17 11:11 05/11/17 10:14 Vistaril - PO 50 mg Q4H PRN Administration ANXIETY Ibuprofen 400 mg 04/14/17 12:30 04/23/17 06:49 Motrin - PO 400 mg Q6H PRN Administration SEVERE PAIN Loperamide HCl 4 mg 04/14/17 12:30 Imodium - PO Q6H PRN DIARRHEA Magnesium Citrate 300 ml 04/14/17 12:30 Citroma - PO Q48H PRN CONSTIPATION Magnesium Hydroxide 30 ml 04/14/17 12:30 Milk Of Magnesia - PO DAILY PRN CONSTIPATION Miconazole Nitrate 100 mg 04/30/17 22:00 05/10/17 21:17 Monistat-7 Vaginal Suppository - PV Not Given HS [facility] Multivitamins/Minerals/Vitamin C 1 tab 04/14/17 14:00 05/11/17 10:13 Tab-A-Vit - PO 1 tab DAILY [facility] Administration Naproxen 500 mg 04/28/17 12:00 05/11/17 10:13 Naprosyn - PO 500 mg BID CELESTINA Administration Nicotine 14 mg 04/14/17 14:00 05/11/17 10:13 Nicoderm Patch - TD Not Given DAILY [facility] Nicotine Polacrilex 2 mg 04/14/17 12:30 Nicorette Gum - BC Q2H PRN NICOTINE REPLACEMENT RX Pantoprazole Sodium 40 mg 04/28/17 12:00 05/11/17 10:12 Protonix - PO 40 mg DAILY [facility] Administration Pseudoephedrine/Triprolidine 1 combo 04/14/17 12:30 Actifed - PO TID PRN NASAL CONGESTION Pyridoxine HCl 50 mg 04/14/17 14:00 05/11/17 10:13 Vitamin B6 - PO 50 mg DAILY CELESTINA Administration Thiamine HCl 100 mg 04/14/17 22:00 05/10/17 21:16 Vitamin B1 - PO 100 mg HS [facility] Administration Tolnaftate 1 applic 04/14/17 22:00 05/11/17 10:13 Tinactin 1% Cream - TP Not Given BID CELESTINA Trazodone HCl 150 mg 05/01/17 22:00 05/10/17 21:15 Desyrel - PO 150 mg HS [facility] Administration Triamcinolone Acetonide 1 applic 04/14/17 14:00 05/11/17 10:13 Aristocort 0.025% Ointment - TP Not Given BID [facility] Medication(s) Change(s): No changes.Scripts sent for : trazodone 150 mg po hs # 30 + lexapro 10 mg po daily # 30 + campral 666 mg po tid # 90.Side effects/ benefits are discussed with the patient.Ms Woodall is encouraged to maintain sobriety and adherence to OPD care. Current Side Effect: No Lab tests ordered: No Lab tests reviewed: Yes Provider note:: Patient will complete this program tomorrow.She has addressed her identified issues and met treatment goals.Ms Woodall is transitioning to [facility] rehabilitation care at the [facility].She endorses improved mood,adequate sleep and a remarkable amelioration of insight into the negative consequences of addictions.Patient pledges to practice teachings taken from [employer] in her quest for maintenance of sobriety.Hospital course is uneventful.No acute medical issues.Mental status is unremarkable.Patient is stable for discharge tomorrow,05/12/17,as scheduled by Multidisciplinary team. Total face to face time:: 30 Mental Status Exam - Mental Status Exam Alert and Oriented to: Time, Place, Person Cognitive Function: Good Patient Appearance: Well Groomed (obese) Mood: Hopeful, Euthymic Affect: Appropriate, Normal Range Patient Behavior: Appropriate, Cooperative Speech Pattern: Clear Voice Loudness: Normal Thought Process: Intact, Goal Oriented Thought Disorder: Not Present Hallucinations: Denies Suicidal Ideation: Denies Homicidal Ideation: Denies Insight/Judgement: Poor Sleep: Fair Appetite: Good Muscle strength/Tone: Normal Gait/Station: Normal Psychiatric Treatment Plan - Problem List (1) Alcohol dependence Current Visit: Yes (2) Alcohol-induced mood disorder Current Visit: Yes (3) Insomnia Current Visit: Yes
[2017-05-11] MEDS: traZODone HCL 50 MG TABLET (FP) PO SCH (21:32)
[2017-05-11] MEDS: THIAMINE HCL 100 MG TABLET (FP) PO SCH (21:33)
[2017-05-11] MEDS: MICONAZOLE NITRATE 100 MG SUPP SUPP.VAG PV SCH (21:34)
[2017-05-11] MEDS ORDERED: PT OWN MED DRAWER 7, Y5N ONE (21:35)
[2017-05-12] MEDS: ACAMPROSATE CALCIUM 333 MG TABLET.DR PO SCH (07:02)
[2017-05-12 07:10] VITALS: BP 110/75; PULSE 97; TEMP 97.9
[2017-05-12] MEDS ORDERED: PT OWN MED DRAWER 7, Y5N ONE (08:39)
[2017-05-12] MEDS: TRIAMCINOLONE ACET 0.025% OINTMENT 15 GM TUBE TP SCH (09:26)
[2017-05-12] MEDS: CLOTRIMAZOLE 1% CREAM 15 GM TUBE TP SCH (09:26)
[2017-05-12] MEDS: NICOTINE 14 MG/24 HOURS TOPICAL PATCH TD SCH (09:26)
[2017-05-12] MEDS: NAPROXEN 500 MG TABLET (FP) PO SCH (09:27)
[2017-05-12] MEDS: MULTIVITAMINS (DAILY MVI) TABLET (FP) PO SCH (09:27)
[2017-05-12] MEDS: PANTOPRAZOLE 40 MG TABLET (FP) PO SCH (09:28)
[2017-05-12] MEDS: TOLNAFTATE 1% CREAM 15 GM TUBE TP SCH (09:28)
[2017-05-12] MEDS: PYRIDOXINE HCL (B-6) 50 MG TABLET (FP) PO SCH (09:28)
[2017-05-12] MEDS: ESCITALOPRAM OXALATE 10 MG TABLET (FP) PO SCH (09:28)
[2017-05-12] MEDS: ASCORBIC ACID 500 MG TABLET (FP) PO SCH (09:28)
[2017-05-12] MEDS: hydrOXYzine PAMOATE 50 MG CAPSULE (FP) PO PRN (09:29)
== END 2017-05-12 09:50 | disposition home or self-care (01) | DRG 772 ==
LOC: YASAS 08:36 → Y3E 12:59
PROVIDERS: ADMIT Psychiatry & Neurology Psychiatry; ATTEND Psychiatry & Neurology Psychiatry
PROC: HZ42ZZZ Group Counseling for Substance Abuse Treatment, Cognitive-Behavioral (ICD-10-PCS; principal; 2017-04-14)
DX: F10.20 Alcohol dependence, uncomplicated (principal); F10.24 Alcohol dependence with alcohol-induced mood disorder; F10.282 Alcohol dependence with alcohol-induced sleep disorder; F17.210 Nicotine dependence, cigarettes, uncomplicated; G47.00 Insomnia, unspecified; R25.2 Cramp and spasm; N39.0 Urinary tract infection, site not specified; R21 Rash and other nonspecific skin eruption; Z87.42 Personal history of other diseases of the female genital tract
CPT/HCPCS: 36415; 80053; 81003; 81015; 83021; 85027; 85660; 86593; 87086